=== PATIENT | female | born 1985 | race Caucasian/White ===

== ENCOUNTER → 2018-04-15 | Outpatient (CLI) | payer BC ==
--- NOTE | 2018-04-15 11:37 | KCIC ---
MR of the right ankle Indication: High ankle sprain. Anterior and lateral pain. Fell 1.5 months ago. Comparison: None are available Technique: Standard multiplanar sequences are obtained. FINDINGS: Artifact: No significant image degradation. Lateral: Peroneal tendons: Minimal signal within the peroneus longus tendon. Peroneus brevis tendon intact. Lateral collateral ligaments: * Anterior talofibular ligament: Sprain/partial tear. * Calcaneofibular ligament: Sprain/partial tear. * Posterior talofibular ligament: Sprain/partial tear. Tibiofibular syndesmosis: Anterior inferior tibiofibular ligament is mildly thickened and heterogeneous compatible with a sprain/partial tear. No complete disruption. Distal tibiofibular joint is maintained. Posterior inferior tibiofibular ligament is intact. Medial: Posterior tibial tendon: Intact Flexor digitorum longus and hallucis tendons: Mild fluid, intact. Medial ligaments: Mild sprain of the deep fibers of the deltoid ligament, no discontinuity. Anterior: Anterior tibial tendon: Intact Extensor hallucis longus tendon: Intact Extensor digitorum longus tendon: Intact Posterior: Achilles tendon: Intact Plantar aponeurosis: No acute plantar fasciitis Subtalar joints: Patent Tarsal sinus: Intact Talar Dome: Intact Bones: Mild marrow edema/contusion within the lateral malleolus and medial malleolus. Mild marrow edema/contusion within the anterolateral talus. No aggressive bone destruction. No acute fracture. No aggressive bone destruction. Fluid: Small tibiotalar and posterior subtalar joint effusion. Joints: No advanced DJD. Soft tissues: Mild edema within the pre-Achilles fat. Impression: 1. Sprain/partial tear of the lateral collateral ankle ligaments. 2. Sprain/partial tear of the anterior inferior tibiofibular ligament. 3. Sprain of the fibers of the deltoid ligament. 4. Mild peroneus longus tendinosis. 5. Bone marrow edema/contusion about the malleoli and talus. Electronically signed by: Francisco Luciano MD (04/15/2018 11:34 AM) [facility]
== END | disposition home or self-care (01) ==
LOC: KCIC MRI 10:11
PROVIDERS: ATTEND Family Medicine Sports Medicine
DX: S93.431D Sprain of tibiofibular ligament of right ankle, subsequent encounter (principal); S93.421D Sprain of deltoid ligament of right ankle, subsequent encounter; X58.XXXD Exposure to other specified factors, subsequent encounter
CPT/HCPCS: 73721

== ENCOUNTER → 2021-05-17 | Outpatient (CLI) | payer BC ==
--- NOTE | 2021-05-18 10:45 | NUR ---
NOTIFIED DR PEREZ THAT PATIENT IS COVID POSITIVE. HE IS TO CALL THE PATIENT TO RESCHEDULE HER AND TELL HER THE PROTOCOL FOR COVID POSITIVE.
== END ==
LOC: LAB 13:59
PROVIDERS: ATTEND Obstetrics & Gynecology
DX: Z01.812 Encounter for preprocedural laboratory examination (principal); U07.1 COVID-19
CPT/HCPCS: U0003; U0005

== ENCOUNTER 2021-06-16 10:57 | Observation (INO) | payer BC ==
[~2021-06-16] VITALS: Ht 167.6 cm; Wt 74.8 kg
[2021-06-16] VITALS (8 sets, daily range): BP systolic 97–113; BP diastolic 62–69
[~2021-06-16 10:57] MED LIST: HYDROmorphone 2 MG/ML INJ. IVP PRN; MORPHINE SULFATE 2 MG/ML INJ. IVP PRN; PROCHLORPERAZINE 10 MG/2 ML VIAL. IVP PRN; ceFAZolin SODIUM IV Push 1 GM VIAL. IVP PRN; fentaNYL PF VIAL 100 MCG/2 ML VIAL IVP PRN
[2021-06-16] MEDS ORDERED: FAMOTIDINE 20 MG/2 ML VIAL IVP ONE (11:45)
[2021-06-16] MEDS: IV RINGERS,LACTATED 1000ML 1,000 ML IV SCH ×2 (11:48→16:59)
[2021-06-16 12:07] LABS: BASO % 0 % (0-3); EOS # 0.1 x10^3/uL (0.0-0.7); EOS % 1 % (0-3); HEMATOCRIT 41.2 % (36.0-47.0); HEMOGLOBIN 13.8 g/dL (12.0-15.5); LYMPH # 1.9 x10^3/uL (1.0-4.8); LYMPH % 15 % (24-48); MEAN CORPUSCULAR HEMOGLOBIN 31 pg (25-35); MEAN CORPUSCULAR HGB CONC 33 g/dL (31-37); MEAN CORPUSCULAR VOLUME 91 fL (79-100); MONO # 0.4 x10^3/uL (0.0-1.1); MONO % 3 % (0-9); NEUT # 10.6 x10^3/uL (1.8-7.7); NEUT % 81 % (31-73); PLATELET COUNT 340 x10^3/uL (140-400); RED BLOOD COUNT 4.51 x10^6/uL (3.50-5.40); RED CELL DISTRIBUTION WIDTH 12.8 % (11.5-14.5); WHITE BLOOD COUNT 13.1 x10^3/uL (4.0-11.0)
[2021-06-16] MEDS ORDERED: LIDOCAINE 2% PF 5 ML VIAL. ONE (12:18)
[2021-06-16] MEDS ORDERED: ONDANSETRON PF 4 MG/2 ML VIAL. ONE (12:18)
[2021-06-16] MEDS ORDERED: DEXAMETHASONE SOD PHOS 4 MG/ML VIAL ONE (12:18)
[2021-06-16] MEDS ORDERED: PROPOFOL 10 MG/ML (20ML) VIAL. IV ONE (12:18)
[2021-06-16] MEDS ORDERED: ROCURONIUM 50 MG/5 ML VIAL. ONE (12:19)
[2021-06-16] MEDS ORDERED: INDIGOTINDISULFONATE SODIUM 40 MG/5 ML AMPUL. ONE ×2 (13:43→13:44)
[2021-06-16] MEDS ORDERED: LIDOCAINE 1%/EPI 1:100,000 20 ML VIAL. ONE (13:44)
[2021-06-16] MEDS ORDERED: MIDAZOLAM HCL/PF 2 MG/2 ML VIAL. ONE (13:59)
[2021-06-16] MEDS ORDERED: fentaNYL PF VIAL 100 MCG/2 ML VIAL ONE ×3 (14:02→16:38)
[2021-06-16] MEDS ORDERED: NEOSTIGMINE METHYLSULFATE 5 MG/5 ML SYRINGE. ONE (14:24)
[2021-06-16] MEDS ORDERED: GLYCOPYRROLATE 1 MG/5 ML VIAL. ONE (14:24)
[2021-06-16] MEDS ORDERED: SEVOFLURANE 61 TO 120 MINUTES. IH ONE (14:24)
[2021-06-16] MEDS ORDERED: ZOLPIDEM 5 MG TABLET. PO PRN (15:30)
[2021-06-16] MEDS ORDERED: CALCIUM CARBONATE 500 MG TAB.CHEW PO PRN (15:30)
[2021-06-16] MEDS ORDERED: PROCHLORPERAZINE 10 MG/2 ML VIAL. IV PRN (15:30)
[2021-06-16] MEDS ORDERED: DEXTROSE 50% 25 GM / 50ML DISP.SYRIN. IV PRN (15:30)
[2021-06-16] MEDS ORDERED: diphenhydrAMINE 50 MG/ML VIAL IV PRN (15:30)
[2021-06-16] MEDS ORDERED: diphenhydrAMINE HCL 25 MG CAPSULE PO PRN (15:30)
[2021-06-16] MEDS ORDERED: ONDANSETRON PF 4 MG/2 ML VIAL. IV PRN (15:30)
[2021-06-16] MEDS ORDERED: 0.9 % SODIUM CHLORIDE 10 ML DISP.SYRIN. IV PRN (15:30)
[2021-06-16] MEDS ORDERED: OPIUM/BELLADONNA 30/16.2MG SUPP.RECT. PR PRN (15:30)
[2021-06-16] MEDS ORDERED: SIMETHICONE 80 MG TAB.CHEW PO PRN (15:30)
[2021-06-16] MEDS ORDERED: oxyCODONE/APAP 5/325 1 TAB TABLET PO PRN (15:30)
--- NOTE | 2021-06-16 15:30 | PDOC4 ---
BRIEF OPERATIVE NOTE Date: Jun 16, 2021 Pre-Op Diagnosis 1. Menorrhagia 2. Dysmenorrhea 3. Cervical Dysplasia 4. Cystocele 5. Rectocele Post-Op Diagnosis Same Procedure Performed TVH and Anterior and Posterior Colporrhaphy Surgeon Dr. Henley Anesthesia Type: General Blood Loss 25 ml Specimens Obtained cervix, uterus Findings cervical dysplasia, cystocele and rectocele Complications none Operative Note see dictation NORBERT HENLEY Jr., MD Jun 16, 2021 15:30
--- NOTE | 2021-06-16 16:24 | OP ---
DATE OF SURGERY: 06/16/2021 PREOPERATIVE DIAGNOSES: 1. Menorrhagia. 2. Dysmenorrhea. 3. Cervical dysplasia. 4. Cystocele. 5. Rectocele. POSTOPERATIVE DIAGNOSES: 1. Menorrhagia. 2. Dysmenorrhea. 3. Cervical dysplasia. 4. Cystocele. 5. Rectocele. PROCEDURE: TVH and anterior and posterior colporrhaphy. SURGEON: John Henley MD ANESTHESIA: GETA. ESTIMATED BLOOD LOSS: 25 mL. COMPLICATIONS: None. FINDINGS: Cervical dysplasia, cystocele, rectocele. SUMMARY: A 36-year-old female with long history of menorrhagia and dysmenorrhea along with cervical dysplasia as well as cystocele and rectocele, requiring a TVH and anterior and posterior colporrhaphy. She was counseled on the risks, benefits and expectations and voiced clear understanding to proceed. DESCRIPTION OF PROCEDURE: The patient was taken to surgery suite and placed in dorsal lithotomy position, was prepped with Betadine solution and draped in a sterile fashion. After adequate anesthesia, weighted speculum and curved Garrett placed vaginally. Anterior and posterior lip of the cervix grasped with Keyur clamps. A 1% lidocaine with epinephrine was injected in a circumferential manner. Bovie cautery was utilized to circumscribe the cervix. The vaginal mucosa was dissected away from the lower uterine segment using moist Ray-Baylee. The parametrial tissue was clamped bilaterally with curved Riki clamps, cut and suture ligated with 2-0 Vicryl suture. The posterior cul-de-sac was then entered sharply with curved Santo scissors. Uterosacral ligaments and cardinal ligaments were clamped bilaterally, cut and suture ligated. The uteroovarian pedicles were then clamped bilaterally, cut and suture ligated. Anterior cul-de-sac was entered bluntly. The round ligament was clamped bilaterally, cut and suture ligated. The cervix and uterus were then removed in their entirety. A modified Gabriel's culdoplasty was performed incorporating the uterosacral ligaments bilaterally. The remainder of the vaginal cuff was reapproximated using 2-0 Vicryl suture in [id number] manner. An Allis clamp was placed 1 cm below the urethral orifice at the midline of the anterior vaginal mucosa. A second Allis clamp was placed 4 cm below the first Allis clamp at the midline of the anterior vaginal wall mucosa. A 1% lidocaine with epinephrine was injected between the 2 Allis clamps. Scalpel was utilized to make a vertical incision between the 2 Allis clamps. With aid of Metzenbaum scissors, the vaginal mucosa was dissected away from the pubovesical fascia using sharp dissection bilaterally along with blunt dissection using a moist Ray-Baylee. The pubovesical fascia was reapproximated using 2-0 Vicryl suture in interrupted fashion. The remaining excess anterior vaginal wall mucosa was excised using Metzenbaum scissors. The remaining anterior vaginal wall mucosa was reapproximated using 2-0 Vicryl suture in a [id number]-[id number] manner. A finger was placed rectally to re-identify the rectocele. Allis clamp was placed at the midline of the posterior vaginal wall mucosa about 4 cm into the vaginal vault. Two Allis clamps were also placed at the posterior fourchette. A 1% lidocaine with epinephrine was injected submucosally on the posterior vaginal wall mucosa up to 4 cm into the posterior vaginal mucosa where an Allis clamp was placed. A scalpel was utilized to make a transverse incision between the 2 Allis clamps on the posterior fourchette. The Metzenbaum scissors were utilized to undermine the posterior vaginal mucosa up to 4 cm into the vaginal vault. After undermining, the posterior vaginal mucosa was incised with the Metzenbaum scissors at the midline and the posterior vaginal wall mucosa was dissected away from the rectovaginal fascia using sharp dissection with Metzenbaum scissors along with blunt dissection using a moist Ray-Baylee. The rectovaginal fascia was reapproximated using 2-0 Vicryl suture in interrupted fashion. The excess posterior vaginal wall mucosa was excised using Metzenbaum scissors. The remaining posterior vaginal wall mucosa was reapproximated using 2-0 Vicryl suture in [id number] manner. Moist vaginal packing was placed. Diana catheter was placed, which elicited a clear yellow urine. The patient tolerated the procedure well and was taken to recovery room in stable condition. Sponge and needle count correct x 3. SAMANTA/LENA DR: Gilmer TID: [id number]
[2021-06-16] MEDS ORDERED: PROCHLORPERAZINE 10 MG/2 ML VIAL. ONE (16:38)
[2021-06-16] MEDS: KETOROLAC 30 MG/ML VIAL. IV PRN ×2 (16:43→22:44)
[2021-06-16] MEDS: fentaNYL PF VIAL 100 MCG/2 ML VIAL IVP PRN ×2 (16:45→17:21)
[2021-06-16] MEDS: GABAPENTIN 300 MG CAPSULE. PO SCH (22:43)
[2021-06-17 00:08] VITALS: BP 98/57
[2021-06-17] MEDS: GABAPENTIN 300 MG CAPSULE. PO SCH ×2 (05:52→14:32)
[2021-06-17] MEDS: KETOROLAC 30 MG/ML VIAL. IV PRN (05:53)
[2021-06-17 06:09] VITALS: BP 108/70
[2021-06-17 06:11] LABS: BASO % 0 % (0-3); EOS % 0 % (0-3); HEMATOCRIT 37.7 % (36.0-47.0); HEMOGLOBIN 12.7 g/dL (12.0-15.5); LYMPH # 1.9 x10^3/uL (1.0-4.8); LYMPH % 14 % (24-48); MEAN CORPUSCULAR HEMOGLOBIN 30 pg (25-35); MEAN CORPUSCULAR HGB CONC 34 g/dL (31-37); MEAN CORPUSCULAR VOLUME 90 fL (79-100); MONO # 0.7 x10^3/uL (0.0-1.1); MONO % 5 % (0-9); NEUT # 10.7 x10^3/uL (1.8-7.7); NEUT % 80 % (31-73); PLATELET COUNT 294 x10^3/uL (140-400); RED BLOOD COUNT 4.17 x10^6/uL (3.50-5.40); RED CELL DISTRIBUTION WIDTH 12.9 % (11.5-14.5); WHITE BLOOD COUNT 13.4 x10^3/uL (4.0-11.0)
[2021-06-17 07:16] VITALS: BP 110/65
--- NOTE | 2021-06-17 07:19 | NUR ---
Up to br and voided. Coughing freq and not productive. Instructed to hold abdomen when coughing. Passes a few clots with voiding and instructed to let us know if any more.
--- NOTE | 2021-06-17 09:30 | NUR ---
Up to void. slightly blood tinged. no clots or bleeding at this time
--- NOTE | 2021-06-17 10:50 | NUR ---
voided large amount of undigested emesis and fluid
[2021-06-17 12:30] VITALS: BP 126/69
--- NOTE | 2021-06-17 13:25 | NUR ---
Magnesium Sulfate hilda's. Patient eating lunch.
--- NOTE | 2021-06-17 13:26 | NUR ---
Charting at 1325 was on the wrong patient.
--- NOTE | 2021-06-17 14:30 | NUR ---
Dr Henley here Gave patient discharge orders
--- NOTE | 2021-06-17 14:38 | PDOC ---
SURGICAL PROGRESS NOTE DATE: 06/17/21 TIME: 14:37 Subjective Pt. feeling well. Pain controlled. She is tolerating regular diet, ambulation and voiding without difficulty. Vital Signs Vital Signs Date Time Temp Pulse Resp B/P (MAP) Pulse Ox O2 Delivery O2 Flow Rate FiO2 06/17/21 09:00 20 06/17/21 07:16 98.2 79 110/65 (80) 95 98.2 06/17/21 06:09 Room Air 06/17/21 00:08 1.5 I&O Intake and Output 06/17/21 07:00 Intake Total 3000 ml Output Total 1025 ml Balance 1975 ml IV Total 3000 ml Output Urine Total 1000 ml Estimated Blood Loss 25 ml # Voids 40 PATIENT HAS A TANNER: No General: Alert, Oriented X3, Cooperative HEENT: Atraumatic, PERRLA Lungs: Clear to auscultation Heart: Regular rate Abdomen: Normal bowel sounds, Soft, No tenderness, No hepatosplenomegaly, No masses Neuro: Normal gait Psych/Mental Status: Mental status NL Labs Laboratory Tests Test 06/16/21 11:27 06/16/21 11:34 06/17/21 05:40 White Blood Count 13.1 x10^3/uL (4.0-11.0) 13.4 x10^3/uL (4.0-11.0) Red Blood Count 4.51 x10^6/uL (3.50-5.40) 4.17 x10^6/uL (3.50-5.40) Hemoglobin 13.8 g/dL (12.0-15.5) 12.7 g/dL (12.0-15.5) Hematocrit 41.2 % (36.0-47.0) 37.7 % (36.0-47.0) Mean Corpuscular Volume 91 fL (79-100) 90 fL (79-100) Mean Corpuscular Hemoglobin 31 pg (25-35) 30 pg (25-35) Mean Corpuscular Hemoglobin Concent 33 g/dL (31-37) 34 g/dL (31-37) Red Cell Distribution Width 12.8 % (11.5-14.5) 12.9 % (11.5-14.5) Platelet Count 340 x10^3/uL (140-400) 294 x10^3/uL (140-400) Neutrophils (%) (Auto) 81 % (31-73) 80 % (31-73) Lymphocytes (%) (Auto) 15 % (24-48) 14 % (24-48) Monocytes (%) (Auto) 3 % (0-9) 5 % (0-9) Eosinophils (%) (Auto) 1 % (0-3) 0 % (0-3) Basophils (%) (Auto) 0 % (0-3) 0 % (0-3) Neutrophils # (Auto) 10.6 x10^3/uL (1.8-7.7) 10.7 x10^3/uL (1.8-7.7) Lymphocytes # (Auto) 1.9 x10^3/uL (1.0-4.8) 1.9 x10^3/uL (1.0-4.8) Monocytes # (Auto) 0.4 x10^3/uL (0.0-1.1) 0.7 x10^3/uL (0.0-1.1) Eosinophils # (Auto) 0.1 x10^3/uL (0.0-0.7) 0.0 x10^3/uL (0.0-0.7) Basophils # (Auto) 0.0 x10^3/uL (0.0-0.2) 0.0 x10^3/uL (0.0-0.2) Bedside Urine HCG, Qualitative Hcg negative (Negative) Laboratory Tests Test 06/17/21 05:40 White Blood Count 13.4 x10^3/uL (4.0-11.0) Red Blood Count 4.17 x10^6/uL (3.50-5.40) Hemoglobin 12.7 g/dL (12.0-15.5) Hematocrit 37.7 % (36.0-47.0) Mean Corpuscular Volume 90 fL (79-100) Mean Corpuscular Hemoglobin 30 pg (25-35) Mean Corpuscular Hemoglobin Concent 34 g/dL (31-37) Red Cell Distribution Width 12.9 % (11.5-14.5) Platelet Count 294 x10^3/uL (140-400) Neutrophils (%) (Auto) 80 % (31-73) Lymphocytes (%) (Auto) 14 % (24-48) Monocytes (%) (Auto) 5 % (0-9) Eosinophils (%) (Auto) 0 % (0-3) Basophils (%) (Auto) 0 % (0-3) Neutrophils # (Auto) 10.7 x10^3/uL (1.8-7.7) Lymphocytes # (Auto) 1.9 x10^3/uL (1.0-4.8) Monocytes # (Auto) 0.7 x10^3/uL (0.0-1.1) Eosinophils # (Auto) 0.0 x10^3/uL (0.0-0.7) Basophils # (Auto) 0.0 x10^3/uL (0.0-0.2) Assessment/Plan A: POD#1 s/p TVH, A&P Repair P: D/c home. F/u in 2 wks. Justicifation of Admission Dx: Justifications for Admission: Justification of Admission Dx: Yes NORBERT PEREZ Jr., MD Jun 17, 2021 14:38
--- NOTE | 2021-06-17 14:40 | NUR ---
Dismissal instructions reviewed with patient. Verbalized understanding. Pt up to the Br voided and dressed
[2021-06-17] MEDS ORDERED: GABA300C18 PO (14:46)
[2021-06-17] MEDS ORDERED: DOCU240C PO (14:46)
[2021-06-17] MEDS ORDERED: IBUP200C26 PO (14:46)
--- NOTE | 2021-06-17 14:47 | DISCH ---
DISCHARGE INSTRUCTIONS Condition on Discharge Condition on Discharge: Stable Activity After Discharge Activity Instructions for Disc: Activity as tolerated Lifting Instructions after Dis: No heavy lifting Driving Instructions after Dis: No driving for 2 weeks Diet after Discharge Diet after Discharge: Regular Contacting the DRGina after DC Call your doctor for: If your condition worsens Follow-Up Follow up with: Dr. Henley in 2 wks NORBERT HENLEY Jr., MD Jun 17, 2021 14:47
--- NOTE | 2021-06-17 15:00 | NUR ---
Patient discharged per W/c to awaiting car
--- NOTE | 2021-06-23 09:09 | PATHOLOGY ---
[facility] Accession Number: [id number] . 01 Material submitted: . PART A: fallopian tube - LEFT FALLOPIAN TUBE. Modifiers: left PART B: uterus - UTERUS AND CERVIX . 01 Clinical history: . ABNORMAL BLEEDING VAGINAL CYSTECTOMY, A AND P REPAIR . 01 Frozen section diagnosis: . . /QTP . 02 Diagnosis: A. Segment of left fallopian tube, salpingectomy: - No diagnostic abnormalities. . B. Uterus, vaginal hysterectomy: - Severe dysplasia/carcinoma in situ (JORDAN 3), with endocervical glandular extension, focal. - Ectocervical margin of cervix negative for JORDAN 3. - Chronic inflammation and hypercornification of ectocervix, focal. - Proliferative endometrium. - Adenomyosis, uterine corpus, focal (uterine weight 78 grams). . (JPM:mml/pit; 06/20/2021) [facility] 06/23/2021 0824 Local . 02 Comment: The entire cervix is submitted for histologic evaluation. There is focal severe dysplasia / carcinoma in situ (JORDAN 3) with endocervical glandular extension. The ectocervical margin is negative for JORDAN 3. There is no evidence of invasive carcinoma. . (JPM:mml; 06/20/2021) . 02 Electronically signed: . Javier Mcneill MD, Pathologist NPI- [id number] . 01 Gross description: . A. Fixative: Formalin Labeled: Left fallopian tube Measurements: 3.1 cm in length x 0.3 cm in diameter Fimbriated: No External surface: Fragmented, smooth, cortez-pink Cut Surface: Cortez-white pinpoint lumen A1 entire fallopian tube . B. Fixative: Formalin Labeled: Uterus and cervix Specimen received: Previously opened hysterectomy Uterus weight: 78 g Uterus: 7.2 cm from ectocervix to fundus, 4.9 cm from right to left, and 3.8 cm from anterior to posterior Serosa: Smooth, cortez-pink glistening Ectocervix: Smooth, cortez-white and glistening with a well-defined transformation zone Cervical os: Slit like, measuring 0.9 cm Endocervical canal: 2.6 x 0.9 cm Endometrial cavity: 3.9 x 2.8 cm Endometrial thickness: 0.2 cm Myometrial thickness: 1.6 cm Lesions/abnormalities: No . [employer] sections are submitted as follows: B1 12:00 cervix B2 6:00 cervix B3 anterior endomyometrium B4-B5 posterior endomyometrium.([facility]; 06/18/2021) B6-B8 12:00-3:00 cervix B9-B11 3:00-6:00 cervix B12-B14 6:00-9:00 cervix B15-B16 9:00-12:00 cervix ([facility]; 06/20/2021) GZA/GZA 06/20/2021 1551 Local . 02 Pathologist provided ICD-10: D06.9, N72, N80.0 . 02 CPT . 966472, [id number] Specimen Comment: A courtesy copy of this report has been sent to [phone], [phone] Specimen Comment: [id number] Specimen Comment: Report sent to / DR MORALES Specimen Comment: A duplicate report has been generated due to demographic updates. Performed at: 01 [facility] [address], [place], [place] [id number] MD Dean Mena MD Phone: [phone] Performed at: 02 [facility] [address], [place] [id number] MD Javier Mcneill MD Phone: [phone]
== END 2021-06-17 15:00 | disposition home or self-care (01) ==
LOC: SURG 10:57 → 3 SO LND 15:32
PROVIDERS: ADMIT Obstetrics & Gynecology; ATTEND Obstetrics & Gynecology
DX: N92.0 Excessive and frequent menstruation with regular cycle (principal); N94.6 Dysmenorrhea, unspecified; N87.0 Mild cervical dysplasia; N81.6 Rectocele; N87.9 Dysplasia of cervix uteri, unspecified; N81.10 Cystocele, unspecified; Z87.410 Personal history of cervical dysplasia
CPT/HCPCS: 36415; 57260; 58262; 81025; 85025; 86850; 86900; 86901; 88302; 88307; 96374; 96375; 96376; A4314; A4930; G0378; G0379; J0690; J0780; J1100; J1885; J2250; J2405; J2704; J2710; J3010; J3490; J7120